=== PATIENT | female | born 1970 | race American Indian/Alaskan Native ===

== ENCOUNTER 2017-05-01 08:41 | Inpatient (IN) | payer MEDICAID ==
[~2017-05-01 08:41] MED LIST: ANCEF/STERILE WATER 2 GM/20 ML 2 GM/20 ML SYRINGE IV NR; APRESOLINE IV PRN; FLAGYL 500 MG/100 ML 500 MG/100 ML BAG IV NR; LOVENOX SUB-Q NR; MORPHINE IV PRN; MYLICON PO PRN; NORCO PO PRN; TRANSDERM-SCOP TD SCH
[2017-05-01] MEDS ORDERED: ZEMURON IV ONE (11:10)
[2017-05-01] MEDS ORDERED: DIPRIVAN 10 MG/ML IV ONE (11:10)
[2017-05-01] MEDS ORDERED: SUBLIMAZE ONE (11:10)
[2017-05-01] MEDS ORDERED: XYLOCAINE MPF 2% ONE (11:10)
[2017-05-01] MEDS ORDERED: MARCAINE 0.5% 30 ML INFILTRATI ONE (12:11)
[2017-05-01] MEDS ORDERED: XYLOCAINE 1% MPF 5 mL ONE (12:11)
[2017-05-01] MEDS: LACTATED RINGERS 1,000 ML IV SCH ×2 (12:25→21:47)
[2017-05-01 12:34] LABS: Bilirubin,Urine NEG (Negative); Blood,Urine NEG (Negative); Ketones,Urine NEG (Negative); Leukocyte Esterase,Urine NEG (Negative); Mucus,Urine FEW /HPF; Nitrite,Urine NEG (Negative); Protein,Urine <15 mg/dL mg/dL (Negative); Urobilinogen,Urine < 2.0 mg/dL (<2.0)
--- NOTE | 2017-05-01 12:47 | Anesthesia Consultation ---
Anesthesia Consult and Med Hx Date of service: 05/01/17 - Airway Anesthetic Teeth Evaluation: Bridges ROM Head & Neck: Adequate Mental/Hyoid Distance: Adequate Mallampati Class: Class III Intubation Access Assessment: Possibly Difficult - Pulmonary Exam CTA: Yes - Cardiac Exam Cardiac Exam: RRR Anesthetic Concerns: Loose top right canine - Pre-Operative Health Status ASA Pre-Surgery Classification: ASA3 Proposed Anesthetic Plan: General - Pulmonary Hx Smoking: No Hx Sleep Apnea: Yes (RESOLVED WITH WT LOSS) - Cardiovascular System Hx Hypertension: No - Central Nervous System Hx Psychiatric Problems: Yes (Anxiety/Depression) - Hematic Hx Anemia: Yes (States is "severe") Hx Sickle Cell Disease: Yes (TRAIT) - Other Systems Hx Alcohol Use: No Hx Substance Use: No Hx Cancer: No Hx Obesity: No - Additional Comments Anesthesia Medical History Comments: Severe malnutrition. Receives TPN daily
--- NOTE | 2017-05-01 12:47 | Anesthesia Day of Surgery ---
Anesthesia Day of Surgery - Day of Surgery Patient Examined: Yes Patient H&P Reviewed: Yes Patient is NPO: Yes
[2017-05-01] MEDS ORDERED: VERSED IV NR (13:00)
[2017-05-01] MEDS ORDERED: NACL 0.9% IR ONE (13:54)
[2017-05-01] MEDS ORDERED: MARCAINE 0.5% INFILTRATI ONE (13:54)
[2017-05-01] MEDS ORDERED: XYLOCAINE 1% MPF 5 mL INFILTRATI ONE (13:58)
[2017-05-01] MEDS ORDERED: ZOFRAN ONE (15:36)
[2017-05-01] MEDS ORDERED: DECADRON ONE (15:36)
[2017-05-01] MEDS ORDERED: NACL 0.9% 1000 ML 1,000 ML ONE (15:37)
[2017-05-01] MEDS ORDERED: LACTATED RINGERS 0 ML ONE (15:37)
[2017-05-01] MEDS ORDERED: DILAUDID ONE (15:41)
--- NOTE | 2017-05-01 16:23 | Post Anesthesia Evaluation ---
- Post Anesthesia Evaluation Patient Participated: Yes Airway Patent: Yes Stable Respiratory Function: Yes Temp > 96.8F: Yes Pain Manageable: Yes Adequeate Hydration: Yes Anesthesia Complications: No
[2017-05-01] MEDS ORDERED: DILAUDID IV PRN (18:25)
[2017-05-01] MEDS: DILAUDID IV PRN ×2 (19:13→22:21)
[2017-05-01] MEDS: ZOFRAN IV PRN (19:19)
[2017-05-01] MEDS ORDERED: LYRICA 25 MG, LYRICA 75 MG PO SCH (22:00)
[2017-05-01] MEDS ORDERED: LYRICA PO SCH ×2 (22:00)
[2017-05-01] MEDS: DOLOPHINE PO SCH (22:22)
[2017-05-01] MEDS: LIORESAL PO SCH (22:23)
[2017-05-02] MEDS: ZOFRAN IV PRN (04:21)
[2017-05-02] MEDS: DILAUDID IV PRN ×2 (04:21→08:00)
[2017-05-02] MEDS: LACTATED RINGERS 1,000 ML IV SCH ×2 (04:24→10:45)
[2017-05-02 05:48] LABS: Basophils % (Auto) 0.3 % (0.0-1.8); Eosinophils % (Auto) 1.7 % (0.0-4.3); Hematocrit 27.8 % (30.3-42.9); Hemoglobin 9.6 gm/dl (10.1-14.3); Mean Corpuscular HGB Conc 35 % (30-34); Mean Corpuscular Hemoglobin 33 pg (28-32); Mean Corpuscular Volume 95 fl (79-97); Platelet Count 205 K/mm3 (140-440); Red Blood Count 2.94 M/mm3 (3.65-5.03); Red Cell Distribution Width 13.8 % (13.2-15.2); White Blood Count 7.8 K/mm3 (4.5-11.0)
[2017-05-02] MEDS ORDERED: DOLOPHINE PO SCH (06:00)
[2017-05-02 06:04] LABS: BUN/Creatinine Ratio 19; Blood Urea Nitrogen 13 mg/dL (7-17); Calcium 8.5 mg/dL (8.4-10.2); Carbon Dioxide 25 mmol/L (22-30); Glucose 97 mg/dL (65-100)
[2017-05-02 06:05] LABS: Anion Gap 16 mmol/L; Chloride 103.3 mmol/L (98-107); Potassium 4.7 mmol/L (3.6-5.0); Sodium 140 mmol/L (137-145)
[2017-05-02] MEDS ORDERED: PROzac PO SCH (10:00)
[2017-05-02] MEDS ORDERED: LYRICA PO SCH (10:00)
[2017-05-02] MEDS ORDERED: ABILIFY PO SCH (10:00)
[2017-05-02] MEDS ORDERED: LOVENOX SUB-Q SCH (10:00)
[2017-05-02] MEDS: LIORESAL PO SCH (10:41)
[2017-05-02] MEDS: DOLOPHINE PO SCH (11:51)
--- NOTE | 2017-05-02 12:42 | Discharge Summary ---
Providers - Providers Date of Admission: 05/01/17 11:17 Attending physician: NATANAEL REYNAGA Hospitalization Condition: Good Procedures: Laparoscopic reversal of entero-enterostomy Hospital course: 46 y.o. F admitted with malnutrition underwent laparoscopic reversal of entero- enterostomy. She tolerated the procedure well. On POD 1 her pain was controlled once her home meds plus rescue meds for pain were given. Her nausea was controlled. She tolerated the liquids well. She was discharged on POD 1. She was prev. using TPN at home via picc line. She will continue tpn at home until her po intake increases. Disposition: DC-01 TO HOME OR SELFCARE Core Measure Documentation - Palliative Care Palliative Care/ Comfort Measures: Not Applicable - Core Measures Any of the following diagnoses?: none Exam - Physical Exam Narrative exam: Gen: no acute distress. Resp: equal rise and fall of chest cardio : rrr abd: soft, minimally distended. incision sites dry blood on dressing , tender at incision sites ext: +1-2 edema lower extremities - Constitutional Vitals: Temp Pulse Resp BP Pulse Ox 98.7 F 90 18 115/69 95 05/02/17 07:42 05/02/17 07:42 05/02/17 07:42 05/02/17 07:42 05/02/17 07:42 Plan Activity: other (no lifting >15lbs for 6 weeks . no cruntches for 6 weeks ) Diet: other (sugar free clears for 2 days. Full liquids-protein shakes ect for 2 -3 days. Advance to soft/puree diet as tolerated after the full liquids. ) Wound: keep clean and dry Additional Instructions: Follow up for wound check. Continue TPN for now. Will reassess the need for TPN at 2-3 weeks appointment. Follow up with: KAMINI MARRUFO [Other] - 7 Days
[2017-05-02 16:46] VITALS: BP 103/62
[2017-05-02] MEDS ORDERED: ROBAXIN 1,000 MG in NACL 0.9% 250ML 250 ML IV SCH (18:00)
--- NOTE | 2017-06-01 00:15 | Operative Report ---
PREOPERATIVE DIAGNOSIS: Malnourishment following a gastric bypass and revision of gastric bypass with Jeison-en-Y limb lengthening in 2016. POSTOPERATIVE DIAGNOSIS: Malnourishment following a gastric bypass and revision of gastric bypass with Jeison-en-Y limb lengthening in 2016. PROCEDURE: Revision of enteroenterostomy. SURGEON: Guanako Fleming MD. AEROPHYSICS ENGINEER: Bryce Arriaga. ANESTHESIA: General. OPERATIVE TECHENIQUE: The patient was placed on the operating table in dorsal supine position and following satisfactory induction of general anesthesia, the abdomen was prepped using Hibiclens solution and scrubbed and draped in a sterile fashion. This patient had a long history of weight regain and subsequently underwent a revision. After the revision, the patient had severe problems with malnourishment, dehydration, and hospitalization for these problems because of the severe diarrhea. It was felt that the revision needed to be reversed and therefore, the patient was scheduled for a revision enteroenterostomy. After adequate anesthesia, prepping and draping in the usual fashion, the abdominal cavity was then approached with a Veress needle and placed into the umbilicus with insufflation of CO2 up to 15 mmHg pressure. After this was accomplished, an incision was made in the umbilicus ____ fashion and a 12 mm trocar was then placed for inspection of the intra-abdominal contents. We therefore identified the area where the biliopancreatic limb was identified and it was noted to be taken down to an area that was anastomosed to the ileum approximately 200 cm proximal to the ileocecal valve. This was felt to be her problem with increased diarrhea and malnutrition. Therefore, we decided to reverse this. We therefore took the biliopancreatic limb down with a GI endocutter stapling device and took it from this area of the small bowel. We then therefore transected the Jeison-en-Y limb approximately 125 cm distal to the gastrojejunostomy and this Jeison-en-Y limb was then anastomosed to approximately a loop of YU 400 cm proximal to the ileocecal valve. This was done with an endocutter stapling device in the [id number] anastomosis. The previously transected biliopancreatic limb was anastomosed as well to the side of the jejunum in a [id number] fashion completing the common channel. The enterotomies were all closed with an endocutter stapling device. ____ created a longer biliopancreatic limb with a normal Jeison-en-Y limb. Therefore, I will ____ on the patient to have less diarrhea and to allow her to receive adequate nutrition. The bleeding was controlled using the Bovie electrocautery and after adequate hemostasis was accomplished, we then desufflated the abdominal cavity and the fascial defect of the umbilicus was closed using interrupted simple stitches of #1 PDS and the skin was closed using interrupted subdermal sutures of 4-0 Monocryl. Steri-Strips were applied to the wound. The patient tolerated the procedure well and was brought to recovery room in satisfactory condition. JOB# [id number] ARCELIA/FAITH
== END 2017-05-02 18:22 | disposition home health service (06) | DRG 345 ==
LOC: 3A 11:17 → 3B-SURG 16:36
PROVIDERS: ADMIT Specialist; ATTEND Specialist
PROC: 0DW Gastrointestinal System, Revision (ICD-10-PCS; principal; 2017-05-01)
DX: K94.19 Other complications of enterostomy (principal); E44.1 Mild protein-calorie malnutrition; K95.89 Other complications of other bariatric procedure; K91.2 Postsurgical malabsorption, not elsewhere classified; F41.9 Anxiety disorder, unspecified; F32.9 Major depressive disorder, single episode, unspecified; G47.30 Sleep apnea, unspecified; Z68.28 Body mass index [BMI] 28.0-28.9, adult; Z98.84 Bariatric surgery status; Z98.0 Intestinal bypass and anastomosis status; Y83.2 Surgical operation with anastomosis, bypass or graft as the cause of abnormal reaction of the patient, or of later complication, without mention of misadventure at the time of the procedure
CPT/HCPCS: 36415; 80048; 81001; 85025; J0690; J1100; J1170; J1650; J2250; J2270; J2405; J2704; J2800; J3010; J7030; J7050; J7120